=== PATIENT | female | born 1980 | race Caucasian/White ===

== ENCOUNTER 2023-09-05 10:52 | Outpatient (CLI) | payer BC | END 2023-09-05 10:53 | disposition home or self-care (01) | LOC: BICMRI 10:52 | PROVIDERS: ATTEND Orthopaedic Surgery | DX: M25.511 Pain in right shoulder (principal) | CPT/HCPCS: 72141 ==

== ENCOUNTER 2023-09-28 | Day surgery (SDC) | payer BC | END 2023-09-28 16:49 | disposition home or self-care (01) | PROC: 0RQJ4ZZ Repair Right Shoulder Joint, Percutaneous Endoscopic Approach (ICD-10-PCS; principal; 2023-09-28) | DX: S43.431A Superior glenoid labrum lesion of right shoulder, initial encounter (principal); M75.111 Incomplete rotator cuff tear or rupture of right shoulder, not specified as traumatic; M24.811 Other specific joint derangements of right shoulder, not elsewhere classified; G89.29 Other chronic pain; K21.9 Gastro-esophageal reflux disease without esophagitis; Z79.899 Other long term (current) drug therapy; X58.XXXA Exposure to other specified factors, initial encounter; K29.50 Unspecified chronic gastritis without bleeding; Z98.890 Other specified postprocedural states ==